=== PATIENT | female | born 1995 | race Two or more races ===

== ENCOUNTER 2024-07-22 21:30 | Emergency (ER) | payer MEDICAID, SELFPAY ==
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
[2024-07-22 22:10] VITALS: BP 128/82; PULSE 92; RESP 18; TEMP 36.6; O2SAT 99
[2024-07-22] MEDS: IBUPROFEN TAB 400 MG TABLET 800 MG PO (22:29)
[2024-07-22] MEDS: AMOXICILLIN/POT CLAV 875 TABLET 1 TAB PO (22:30)
[2024-07-22] MEDS: DIPHTH,PERTUSS(ACELL),TET VAC 0.5 ML SYR- ADULT IMi (22:31)
[2024-07-22] MEDS: BACITRACIN OINT 1 GM PACKET TOP (22:39)
[2024-07-23 00:28] VITALS: RESP 18
== END 2024-07-23 00:29 | disposition home or self-care (01) ==
PROVIDERS: Emergency Provider Emergency Medicine
DX: S60.512A Abrasion of left hand, initial encounter (principal); Y04.0XXA Assault by unarmed brawl or fight, initial encounter; Z23 Encounter for immunization
CPT/HCPCS: 70450; 70486; 72125; 73120; 90471; 90715; 99284; A9270